=== PATIENT | male | born 1955 | race Asian ===

== ENCOUNTER 2018-10-19 08:51 | Emergency (ER) | payer OTHER ==
[~2018-10-19] VITALS: Ht 172.7 cm; Wt 71.0 kg
[2018-10-19 11:18] VITALS: BP 147/78
== END 2018-10-19 11:20 | disposition home or self-care (01) ==
LOC: ED 11:16
DX: M19.072 Primary osteoarthritis, left ankle and foot (principal); M19.071 Primary osteoarthritis, right ankle and foot
CPT/HCPCS: 36415; 73610; 80048; 82040; 84550; 85025; 93970; 96372; 99284; J1885